=== PATIENT | male | born 1985 | race American Indian/Alaskan Native ===

== ENCOUNTER 2019-07-15 16:19 | Emergency (ER) | payer MEDICAID ==
--- NOTE | 2019-07-15 17:07 | Emergency Department Report ---
Chief Complaint: Upper Respiratory Infection Stated Complaint: FLU Time Seen by Provider: 07/15/19 17:05 - HPI History of Present Illness: SEVERAL DAY HISTORY OF FLU LIKE SYMPTOMS HERE WITH FAMILY WITH SAME ILLNESS - ROS Review of Systems: MYALGIA CHILLS BODY ACHES PAIN WITH COUGH - Exam Vital Signs: NORMAL DOCUMENTED MANUALLY BY RN Physical Exam: ALERT AND ORIENTED W/C BOUND DUE TO RLE AMPUTATION S1S2 LUNGS CTA ABD SNT MSE screening note: Focused history and physical exam performed. Due to findings the following was ordered: Patient discussed with doctor:: FREDDY FOSTER ED Disposition for MSE Condition: Stable
== END 2019-07-15 18:48 | disposition left against medical advice (07) ==
LOC: ED 16:19
DX: R05 Cough (principal); R68.83 Chills (without fever)
CPT/HCPCS: 99281